=== PATIENT | female | born 1990 | race Caucasian/White ===

== ENCOUNTER → 2024-02-15 11:14 | Outpatient (REF) | payer BC, SELFPAY | LOC: PNTC 11:14 | PROVIDERS: ATTENDING PHYSICIAN Obstetrics & Gynecology | DX: O09.519 Supervision of elderly primigravida, unspecified trimester (principal); O09.529 Supervision of elderly multigravida, unspecified trimester; Z36.0 Encounter for antenatal screening for chromosomal anomalies; Z68.30 Body mass index [BMI] 30.0-30.9, adult | CPT/HCPCS: 76805 ==

== ENCOUNTER → 2024-04-02 14:46 | Outpatient (REF) | payer BC, SELFPAY | LOC: PNTC 14:46 | PROVIDERS: ATTENDING PHYSICIAN Obstetrics & Gynecology | DX: O99.210 Obesity complicating pregnancy, unspecified trimester (principal) | CPT/HCPCS: 76811 ==

== ENCOUNTER 2024-08-01 00:21 | Inpatient (IN) | payer BC, SELFPAY ==
[2024-08-01 00:25] VITALS: BP 137/92; BMI 35.7
[2024-08-01 01:12] LABS: % Basophils 0.2 % (0-2); % Eosinophils 0.5 % (0-6); % Immature Granulocytes 0.3 % (0-0.5); % Lymphocytes 25.7 % (20.5-51.1); % Monocytes 6.5 % (1.7-9.3); % Neutrophils 66.8 % (42.2-75.2); Absolute Eosinophils 0.1 10^3/uL (0-0.7); Absolute Lymphocytes 2.4 10^3/uL (1.2-3.4); Absolute Monocytes 0.6 10^3/uL (0.1-0.6); Absolute Neutrophils 6.4 10^3/uL (1.4-6.5); Hematocrit 34.7 % (37.0-47.0); Hemoglobin 12.6 g/dL (12.0-16.0); Mean Corp Hgb Conc. 36.3 g/dL (33.0-37.0); Mean Corpuscular Volume 85.5 fL (81.0-99.0); Mean Platelet Volume 9.5 fL (7.4-10.4); Nucleated Red Blood Cells % 0 %; Platelet Count 190 10^3/uL (130-400); Red Blood Cell Count 4.06 10^6/uL (4.20-5.40); White Blood Cell Count 9.5 10^3/uL (4.8-10.8)
[2024-08-01] MEDS: PITOCIN 30 UNITS/NSS 500 ML IV (08:07)
[2024-08-01] MEDS: SENOKOT-S 1 TABLET PO (12:13)
[2024-08-01] MEDS: MOTRIN 600 MG PO ×2 (12:13→20:27)
[2024-08-02 05:13] LABS: Hematocrit 32.6 % (37.0-47.0); Hemoglobin 11.7 g/dL (12.0-16.0)
[2024-08-02] MEDS: MOTRIN 600 MG PO ×2 (06:48→14:48)
[2024-08-02] MEDS: SENOKOT-S 1 TABLET PO (06:49)
[2024-08-02 11:51] LABS: Syphilis/T. pallidum Ab Reflex Negative (Negative)
--- NOTE | 2024-08-06 08:26 | PN.CDI ---
CDI
- -
CDI:
Physician Documentation Request
Admit Date: [f_Reg Admit Date Time]
Dear Doctor Norma
Please review the following and provide your response in the progress notes.
Clinical Indicators:
The diagnosis of the Acute chorioamnionitis was included in the signed path report.
Please indicate in your progress notes if you are in agreement that the above diagnosis is valid for this patient:
____Acute chorioamnionitis is a valid diagnosis (Please include it in your progress notes)
____ Acute chorioamnionitis is not a valid diagnosis for this patient
____ Acute chorioamnionitis is not yet confirmed but remains a suspected condition
____ - Other
____ - Unable to determine
Use of terms such as suspected, likely, concern for, or probable are acceptable for a diagnosis that is being evaluated, monitored or treated as if it exists and can be coded in the inpatient setting, when documented at the time of discharge.
Thank you
Clara Bender
Presidential Support Specialist Inpatient
Please use your independent medical judgment in providing your response.
== END 2024-08-02 15:08 | disposition home or self-care (01) | DRG 806 ==
LOC: LDRP 00:21
PROVIDERS: ADMITTING PHYSICIAN Obstetrics & Gynecology
PROC: 4A1HXCZ Monitoring of Products of Conception, Cardiac Rate, External Approach (ICD-10-PCS; 2024-08-01)
PROC: 10E0XZZ Delivery of Products of Conception, External Approach (ICD-10-PCS; 2024-08-01)
DX: O48.0 Post-term pregnancy (principal); O99.354 Diseases of the nervous system complicating childbirth; Z37.0 Single live birth; O69.81X0 Labor and delivery complicated by cord around neck, without compression, not applicable or unspecified; O43.193 Other malformation of placenta, third trimester; G43.909 Migraine, unspecified, not intractable, without status migrainosus; Z3A.40 40 weeks gestation of pregnancy; Z88.1 Allergy status to other antibiotic agents; Z91.040 Latex allergy status; Z87.891 Personal history of nicotine dependence
CPT/HCPCS: 88307; 85014; 85018; 85025; 86780; 86850; 86900; 86901

== ENCOUNTER 2025-04-01 03:36 | Emergency (ER) | payer BC, SELFPAY ==
[2025-04-01 03:37] VITALS: BP 182/120
--- NOTE | 2025-04-01 04:10 | ED.GENMED ---
History of Present Illness
General
Chief Complaint: Skin Problem
Source: patient and previous hospital records (Spontaneous vaginal delivery July 2024. No reported complications.)
Exam Limitations: none
Time Seen by Provider: 04/01/25 03:51
Nursing documentation reviewed up to this point in time: agreed with
History of Present Illness
History of Present Illness:
This is a 34-year-old woman with no significant past medical history seen for remote history of Live's palsy related to Lyme disease August 2023.
She has driven herself to the ED with multiple seemingly unrelated complaints, all ongoing for several weeks.
She complains of bilateral ear discomfort, toothache and admits that these issues have improved after undergoing uncomplicated root canal procedure yesterday. Dental pain has markedly improved since yesterday.
She is concerned for whitish plaque on tongue, concerned that she has thrush. Denies sore throat. No difficulty swallowing. No recent antibiotic use nor current antibiotic use.
No recent fever or chills. No cough no shortness of breath. No chest pain. No abdominal pain.
She is also concerned with intermittent bruising of her legs. Denies injury.
She believes she had a yeast infection 2 to 3 weeks ago with vaginal itching. Vaginal itching has since resolved. She is concerned however that she was not treated for the yeast infection. She denies vaginal discharge. No pelvic or vaginal pain.
No dysuria no urgency and or hematuria.
Currently has her menses, normal and on time.
Patient takes no medicines on a daily basis. However she admits to Adderall abuse, admits to snorting Adderall which she buys off the street.
She is most concerned that Adderall has been laced with levamisole. Concerned that her intermittent bruising, yeast infection to levamisole laced Adderall.
She is requesting that she be tested for levamisole exposure.
Past History
Past History
ED Past Medical History: None
ED Past Surgical History: None
Social History
Tobacco: Non-smoker
Alcohol: None
Drug: None
Living: with family
Phy Exam
Physical Exam
Physical Exam:
GENERAL: 34-year-old woman appears her stated age, awake and alert, mildly to moderately anxious, agitated, pacing about exam room. Somewhat disheveled and unkempt.
EYE: pupils equal and reactive. anicteric
NECK: Supple, nontender, no meningismus, no significant adenopathy.
ENT: posterior pharynx is clear, oral mucosa is minimally dry. There is a superficial whitish film covering the superior surface of the tongue. This film is not removable. Nontender. There is no lesions of the buccal mucosa nor pharynx nor
posterior pharynx. There is no ulcerations. No dental tenderness. No facial swelling nor gingival swelling. TM clear b/l, nares patent.
CARDIAC: Regular rate and rhythm. no murmur.
LUNGS: Clear breath sounds bilaterally, no acute respiratory distress, no wheezes/rales/rhonchi
ABDOMEN: Soft, nondistended, without focal tenderness, no r/g, no cvat. normoactive BS.
NEUROLOGICAL: Alert and oriented x3, no focal neuro deficits. Gait is cruz and steady.
SKIN: Warm and dry, normal color, skin intact. No rash. Few subacute/resolving tinea resolved small ecchymotic patches to bilateral lower extremities. No petechiae. No evidence of acute ecchymosis nor large ecchymotic patches.
MUSCULOSKELETAL: No C/C/E. peripheral pulses are full and equal b/l. No palpable tenderness.
PSYCH: Anxious, agitated, argumentative.
Course
Vital Signs
Initial and Last Documented VS:
Initial Vital Signs
Temp Pulse Resp BP Pulse Ox
98.1 F 99 18 182/120 97
04/01/25 03:37 04/01/25 03:37 04/01/25 03:37 04/01/25 03:37 04/01/25 03:37
Last Documented Vital Signs
Temp Pulse Resp BP Pulse Ox
98.1 F 99 18 182/120 97
04/01/25 03:37 04/01/25 03:37 04/01/25 03:37 04/01/25 03:37 04/01/25 03:37
MDM/Problems Addressed
Differential Diagnosis Includes:
Patient is mildly to moderately anxious, agitated, pacing about exam room.
Moderately hypertensive without tachycardia nor febrile. Highly suspect hypertension as well as agitation is amphetamine abuse in nature. She readily admits to snorting Adderall. Denies other drug use.
There is mild superficial whitish discoloration of the superior surface of the tongue that cannot be removed. Nontender. Not consistent with oral candidiasis. Appears more consistent with recent food ingestion, nonspecific leukoplakia. There is
no buccal lesions nor pharyngeal/posterior pharyngeal lesions.
There are a few subacute/resolving small ecchymotic patches bilateral lower extremities that appear focal mild trauma in nature. There is no petechiae. No areas of acute ecchymosis nor significant/large ecchymotic patches.
Upon learning that we are unable to test her for levamisole, patient immediately became irate, belligerent, yelling obscenities directed at myself and quickly decided to leave the ED.
I have encouraged her to discontinue drug use as I suspect this is a significant contributing factor.
She has been offered B cares/crisis evaluation which she promptly declines and has walked out of the ED.
She has also been recommended to follow-up with her primary care physician.
Chronic conditions affecting care: Other (Substance abuse-admits to Adderall abuse/snorting Adderall. Denies IV drug use.)
Acute Exacerbation and/or Progression of Chronic Illness: Other (Substance abuse)
*Pulse Oximetry
SaO2: 97
Oxygen Mode of Delivery: Room air
Patient hypoxic: no
*Critical Care Note
Total Time (30-74mins, 75-104mins- exclusive of procedures): Not Applicable
ED Attending Note
-
Portions of this chart may have been created with voice recognition software.� Occasional wrong word or��sound alike� substitutions may have occurred due to the inherent limitations of voice recognition software.
Discharge Plan
Departure
Patient Disposition: Home (Routine Discharge)
Date of Disposition: 04/01/25
Time of Disposition: 04:11
Patient with high blood pressure during this ER visit?: Yes
Discharge Problem:
Amphetamine abuse
Instructions: Substance Abuse, Treatment for substance use disorder, BLOOD PRESSURE
Prescriptions:
No Action
vit 96-iron fum-folic 1 EACH tablet
1 ea PO DAILY
sennosides-docusate sodium 8.6-50 mg Tablet
1 tab PO DAILYPRN PRN (Reason: constipation) Qty: 0 0RF
ibuprofen 600 mg Tablet
600 mg PO Q6HPRN PRN (Reason: moderate pain/cramps) Qty: 30 0RF
calcium carbonate [Calcium Antacid] 200 mg calcium (500 mg) Tablet,Chewable
400 mg PO Q6HPRN PRN (Reason: indigestion) Qty: 0 0RF
acetaminophen 325 mg Tablet
650 mg PO Q4HPRN PRN (Reason: mild pain) Qty: 0 0RF
Interventions
Interventions:
*Risk Screen - Suicide Last Done: 04/01/25 03:37
*General Assessment Last Done: 04/01/25 03:37
*Neglect/Abuse Screening Last Done: 04/01/25 03:37
Discharge Date and Time
Print Language: KHMER
--- NOTE | 2025-04-01 04:19 | EDRN ---
Patient screaming 'Fuck you Bitch. Go fuck yourself' to Dr. Virk. Patient left abruptly. Per patient was upset that she would not test her Adderall to see if it was laced.
== END 2025-04-01 04:25 | disposition home or self-care (01) ==
LOC: EMR 03:36
PROVIDERS: EMERGENCY PHYSICIAN Emergency Medicine
DX: F15.10 Other stimulant abuse, uncomplicated (principal); R45.1 Restlessness and agitation; H92.03 Otalgia, bilateral; K08.89 Other specified disorders of teeth and supporting structures; R58 Hemorrhage, not elsewhere classified; Z53.29 Procedure and treatment not carried out because of patient's decision for other reasons; R03.0 Elevated blood-pressure reading, without diagnosis of hypertension; Z91.048 Other nonmedicinal substance allergy status
CPT/HCPCS: 99282